=== PATIENT | female | born 1950 | race Hispanic/Latino ===

== ENCOUNTER 2022-01-05 17:27 | Emergency (ER) | payer OTHER, SELFPAY ==
--- NOTE | 2022-01-05 18:33 | ER ---
Nurse's Notes [facility] Name: Karla Rojo Age: 71 yrs Sex: Female : 1950 Arrival Date: 01/05/2022 Time: 17:32 Bed Waiting Private MD: Diagnosis: ED Course: 01/05 17:32 Patient arrived in ED. as Administered Medications: No medications were administered Outcome: 18:33 Patient left the ED. iw Signatures: Elizabeth Adams Irene, RN RN iw
== END 2022-01-05 18:33 | disposition left against medical advice (07) ==
LOC: ER 17:27
DX: Z02.9 Encounter for administrative examinations, unspecified (principal)